=== PATIENT | female | born 1990 | race Caucasian/White ===

== ENCOUNTER → 2018-04-08 | Outpatient (CLI) | payer OTHER ==
[2016-04-10 05:53] VITALS: BP 111/40
[~2018-04-08] MED LIST: CIPR250T30 PO; GABA-585 PO; HALO2TAB PO; HYDR-971 PO; LORA-254 PO; NALT50TA PO; PARO40TA3 PO; PROM25TA10 PO
[2018-04-08 09:39] LABS: BASO % 1 % (0-3); EOS # 0.2 x10^3/uL (0.0-0.7); EOS % 3 % (0-3); HEMATOCRIT 38.6 % (36.0-47.0); HEMOGLOBIN 13.4 g/dL (12.0-15.5); LYMPH # 1.5 x10^3/uL (1.0-4.8); LYMPH % 22 % (24-48); MEAN CORPUSCULAR HEMOGLOBIN 33 pg (25-35); MEAN CORPUSCULAR HGB CONC 35 g/dL (31-37); MEAN CORPUSCULAR VOLUME 95 fL (79-100); MONO # 0.6 x10^3/uL (0.0-1.1); MONO % 9 % (0-9); NEUT # 4.6 x10^3uL (1.8-7.7); NEUT % 66 % (31-73); PLATELET COUNT 207 x10^3/uL (140-400); RED BLOOD COUNT 4.08 x10^6/uL (3.50-5.40); RED CELL DISTRIBUTION WIDTH 12.2 % (11.5-14.5)
[2018-04-08 09:45] LABS: ALBUMIN 3.4 g/dL (3.4-5.0); ALBUMIN/GLOBULIN RATIO 1.1 (1.0-1.7); ALK PHOS 46 U/L (46-116); ALT (SGPT) 17 U/L (14-59); ANION GAP 8 (6-14); AST (SGOT) 13 U/L (15-37); BLOOD UREA NITROGEN 10 mg/dL (7-20); BUN/CREATININE RATIO 11 (6-20); CALCIUM 9.4 mg/dL (8.5-10.1); CARBON DIOXIDE 28 mmol/L (21-32); CHLORIDE 105 mmol/L (98-107); CREATININE 0.9 mg/dL (0.6-1.0); GFR 75.1; GLUCOSE 88 mg/dL (70-99); POTASSIUM 3.9 mmol/L (3.5-5.1); SODIUM 141 mmol/L (136-145); TOTAL BILIRUBIN 0.2 mg/dL (0.2-1.0); TOTAL PROTEIN 6.6 g/dL (6.4-8.2)
[2018-04-08 09:46] LABS: VAL ACID 24 mcg/mL (50-100)
[2018-04-08 13:32] LABS: FREE T4 0.84 ng/dL (0.76-1.46); THYROID STIM HORMONE (TSH) 2.896 uIU/mL (0.358-3.740)
== END | disposition home or self-care (01) ==
LOC: LAB 08:31
PROVIDERS: ATTEND Physician Assistant
DX: Z51.81 Encounter for therapeutic drug level monitoring (principal); Z79.899 Other long term (current) drug therapy; Z88.0 Allergy status to penicillin; Z88.8 Allergy status to other drugs, medicaments and biological substances
CPT/HCPCS: 36415; 80053; 80061; 80164; 84439; 84443; 84480; 85025

== ENCOUNTER → 2018-10-16 | Outpatient (CLI) | payer MEDICARE, OTHER ==
[2016-04-10 05:53] VITALS: BP 111/40
[~2018-10-16] MED LIST changes: +HYDR-3165 PO; -HYDR-971 PO
[2018-10-16 10:29] LABS: VAL ACID 44 mcg/mL (50-100)
== END | disposition home or self-care (01) ==
LOC: LAB 09:00
PROVIDERS: ATTEND Physician Assistant
DX: Z79.899 Other long term (current) drug therapy (principal)
CPT/HCPCS: 36415; 80164

== ENCOUNTER 2019-03-17 18:42 | Emergency (ER) | payer MEDICARE, OTHER ==
[~2019-03-17] VITALS: Ht 170.2 cm; Wt 99.8 kg
[2019-03-17 18:53] VITALS: BP 141/87
[2019-03-17] MEDS ORDERED: CLINDAMYCIN HCL 150 MG CAPSULE PO ONE (19:15)
[2019-03-17] MEDS ORDERED: HYDR-3165 PO (19:18)
[2019-03-17] MEDS ORDERED: CLIN150C14 PO (19:18)
--- NOTE | 2019-03-17 19:18 | PHYS DOC ---
Past History Past Medical History: Anxiety, Depression, Other Past Surgical History: No Surgical History Smoking: Cigarettes Alcohol Use: None Drug Use: None Adult General Chief Complaint Chief Complaint: DENTAL PROBLEM HPI HPI Patient is a 28-year-old female presents with left lower back dental pain. This has been present for the past 4 days and getting worse over time. No improvement with acetaminophen. She is allergic to ibuprofen. No worsening with hot or cold, but increased pain with chewing/pressure. Pain is moderate to severe. No fever. No neck stiffness. No difficulty breathing or swallowing.[] Review of Systems Review of Systems Constitutional: Denies fever or chills [] Eyes: Denies change in visual acuity, redness, or eye pain [] HENT: Denies nasal congestion or sore throat, see history of present illness [] Respiratory: Denies cough or shortness of breath [] Cardiovascular: No chest pain or palpitations[] GI: Denies abdominal pain, nausea, vomiting, bloody stools or diarrhea [] : Denies dysuria or hematuria [] Musculoskeletal: Denies back pain or joint pain [] Integument: Denies rash or skin lesions [] Neurologic: Denies headache, focal weakness or sensory changes [] Endocrine: Denies polyuria or polydipsia [] All other systems were reviewed and found to be within normal limits, except as documented in this note. Allergies Allergies Allergies Coded Allergies Type Severity Reaction Last Updated Verified Penicillins Allergy Unknown hives 09/02/15 No zolpidem Allergy Unknown 04/09/16 Yes Physical Exam Physical Exam Constitutional: Well developed, well nourished, no acute distress, non-toxic appearance. [] HENT: Normocephalic, atraumatic, bilateral external ears normal, oropharynx moist, no oral exudates, nose normal. Tooth #18 has tenderness to percussion. No drainable abscess appreciated. No swelling of the floor the mouth.[] Eyes: PERRLA, EOMI, conjunctiva normal, no discharge. [] Neck: Normal range of motion, no tenderness, supple, no stridor. There is cervical lymphadenopathy on the left side, no nuchal rigidity.[] Cardiovascular:Heart rate regular rhythm, no murmur [] Lungs & Thorax: Bilateral breath sounds clear to auscultation [] Abdomen: Not examined. [] Skin: Warm, dry, no erythema, no rash. [] Back: No tenderness, no CVA tenderness. [] Extremities: No tenderness, no cyanosis, no clubbing, ROM intact, no edema. [] Neurologic: Alert and oriented X 3, normal motor function, normal sensory function, no focal deficits noted. [] Psychologic: Affect normal, judgement normal, mood normal. [] Current Patient Data Vital Signs Vital Signs Date Time Temp Pulse Resp B/P (MAP) Pulse Ox O2 Delivery O2 Flow Rate FiO2 03/17/19 18:53 98.2 89 18 99 Room Air EKG EKG [] Radiology/Procedures Radiology/Procedures [] Course & Med Decision Making Course & Med Decision Making Pertinent Labs and Imaging studies reviewed. (See chart for details) ED course and medical decision making: There is no evidence of Cipriano angina, no evidence of an abscess that is drainable. No evidence of meningitis or encephalitis. She was placed in a chair, given antibiotics, and discharged in improved condition with all questions answered.[] Dragon Disclaimer Dragon Disclaimer This electronic medical record was generated, in whole or in part, using a voice recognition dictation system. Departure Departure: Impression: Primary Impression: Dental infection Disposition: HOME, SELF-CARE Condition: IMPROVED Referrals: PCP,NO (PCP) Patient Instructions: Dental Abscess Additional Instructions: Follow-up with your regular doctor or dentist in 2 days. If you do not have a primary care team, list of local clinics will be provided for you. Return to the ER if worsening pain, difficulty swallowing or breathing, or any other concerns. Scripts Hydrocodone Bit/Acetaminophen (NORCO 5-325 TABLET) 1 Each Tablet 1 TAB PO Q4-6HRS for severe pain, #20 TAB Prov: PADMINI TORRES DO 03/17/19 Clindamycin Hcl (CLINDAMYCIN HCL) 150 Mg Capsule 2 CAP PO QID for dental infection, #90 CAP Prov: PADMINI TORRES DO 03/17/19 PADMINI TORRES DO Mar 17, 2019 19:18
== END 2019-03-17 19:23 | disposition home or self-care (01) ==
LOC: ER 18:42
DX: K04.7 Periapical abscess without sinus (principal); F17.210 Nicotine dependence, cigarettes, uncomplicated; Z88.0 Allergy status to penicillin; Z88.8 Allergy status to other drugs, medicaments and biological substances; Z88.6 Allergy status to analgesic agent
CPT/HCPCS: 99283

== ENCOUNTER → 2019-05-22 | Outpatient (CLI) | payer MEDICARE, OTHER ==
[~2019-05-22] MED LIST changes: +CLIN150C14 PO
[2019-05-22 09:48] LABS: ALBUMIN 3.4 g/dL (3.4-5.0); ALBUMIN/GLOBULIN RATIO 0.9 (1.0-1.7); ALK PHOS 42 U/L (46-116); ALT (SGPT) 14 U/L (14-59); ANION GAP 8 (6-14); AST (SGOT) 12 U/L (15-37); BLOOD UREA NITROGEN 8 mg/dL (7-20); BUN/CREATININE RATIO 9 (6-20); CARBON DIOXIDE 26 mmol/L (21-32); CHLORIDE 105 mmol/L (98-107); CREATININE 0.9 mg/dL (0.6-1.0); GFR 74.6; GLUCOSE 87 mg/dL (70-99); POTASSIUM 4.2 mmol/L (3.5-5.1); SODIUM 139 mmol/L (136-145); TOTAL BILIRUBIN 0.5 mg/dL (0.2-1.0)
[2019-05-22 09:49] LABS: VAL ACID 59 mcg/mL (50-100)
[2019-05-22 09:51] LABS: BASO % 1 % (0-3); EOS # 0.1 x10^3/uL (0.0-0.7); EOS % 2 % (0-3); HEMATOCRIT 40.5 % (36.0-47.0); LYMPH # 1.7 x10^3/uL (1.0-4.8); LYMPH % 38 % (24-48); MEAN CORPUSCULAR HEMOGLOBIN 34 pg (25-35); MEAN CORPUSCULAR HGB CONC 35 g/dL (31-37); MEAN CORPUSCULAR VOLUME 99 fL (79-100); MONO # 0.4 x10^3/uL (0.0-1.1); MONO % 9 % (0-9); NEUT # 2.3 x10^3uL (1.8-7.7); NEUT % 51 % (31-73); PLATELET COUNT 207 x10^3/uL (140-400); RED BLOOD COUNT 4.11 x10^6/uL (3.50-5.40); RED CELL DISTRIBUTION WIDTH 12.1 % (11.5-14.5); WHITE BLOOD COUNT 4.4 x10^3/uL (4.0-11.0)
[2019-05-22 14:37] LABS: FREE T4 0.83 ng/dL (0.76-1.46); THYROID STIM HORMONE (TSH) 2.722 uIU/mL (0.358-3.740)
[2019-05-23 06:07] LABS: HEMOGLOBIN A1C 4.8 % (4.8-5.6)
== END | disposition home or self-care (01) ==
LOC: LAB 08:44
PROVIDERS: ATTEND Physician Assistant
DX: Z51.81 Encounter for therapeutic drug level monitoring (principal); Z79.899 Other long term (current) drug therapy
CPT/HCPCS: 36415; 80053; 80061; 80164; 83036; 84439; 84443; 84480; 85025

== ENCOUNTER 2019-11-23 21:03 | Emergency (ER) | payer MEDICARE, OTHER ==
[~2019-11-23] VITALS: Ht 167.6 cm; Wt 97.7 kg
--- NOTE | 2019-11-23 21:18 | PHYS DOC ---
Past History Past Medical History: Anxiety, Depression, Other Past Surgical History: No Surgical History Smoking: Cigarettes Alcohol Use: None Drug Use: None General Adult EDM: Chief Complaint: BACK PAIN OR INJURY HPI: HPI: ".. I had gotten up on my daughter top bunk ....and I fell off hurting my back".. " That was yesterday.. I am still hurting..." Patient is a 29 year old female who presents with above hx of back pain after falling off top bunk yesterday. Patient has a contusion at upper part of lumbar area. Has findings of muscle spasm. Distal neurovascular intact. No problems with defecation or urination. Patient denies any history of cancer. Patient denies any history of immunosuppression. Patient denies any history of fever. No recent travel outside [facility]. No history of immunosuppression. Review of Systems: Review of Systems: Constitutional: Denies fever or chills Eyes: Denies change in visual acuity HENT: Denies nasal congestion or sore throat Respiratory: Denies cough or shortness of breath Cardiovascular: Denies chest pain or edema GI: Denies abdominal pain, nausea, vomiting, bloody stools or diarrhea : Denies dysuria Musculoskeletal: Complains of back pain Integument: Denies rash Neurologic: Denies headache, focal weakness or sensory changes Endocrine: Denies polyuria or polydipsia Lymphatic: Denies swollen glands Psychiatric: Denies depression or anxiety Heart Score: Risk Factors: Risk Factors: DM, Current or recent (<one month) smoker, HTN, HLP, family history of CAD, obesity. Risk Scores: Score 0 - 3: 2.5% MACE over next 6 weeks - Discharge Home Score 4 - 6: 20.3% MACE over next 6 weeks - Admit for Clinical Observation Score 7 - 10: 72.7% MACE over next 6 weeks - Early Invasive Strategies Family History: Family History: Noncontributory Current Medications: Current Meds: See nursing for home meds Allergies: Allergies: Allergies Coded Allergies Type Severity Reaction Last Updated Verified Penicillins Allergy Intermediate hives 03/17/19 No ibuprofen Allergy Intermediate Hives 03/17/19 Yes zolpidem Allergy Intermediate 03/17/19 Yes Physical Exam: PE: Constitutional: Moderate acute distress, non-toxic appearance. [] HENT: Normocephalic, atraumatic, bilateral external ears normal, oropharynx moist, no oral exudates, nose normal. [] Eyes: PERRLA, EOMI, conjunctiva normal, no discharge. [] Neck: Normal range of motion, no tenderness, supple, no stridor. [] Cardiovascular:Heart rate regular rhythm, no murmur [] Lungs & Thorax: Bilateral breath sounds equal at apex on auscultation [] Abdomen: Bowel sounds normal, soft, no tenderness, no masses, no pulsatile masses. [] Skin: Warm, dry, no erythema, no rash. [] Back: Upper lumbar tenderness, does have muscle spasms and findings of contusion, no CVA tenderness. [] Extremities: No tenderness, no cyanosis, no clubbing, ROM intact, no edema. [] Neurologic: Alert and oriented X 3, normal motor function, normal sensory function, no focal deficits noted. [] DTRs +2 patella. Patient is amatory without problems. Psychologic: Affect anxious l, judgement normal, mood normal. [] EKG: EKG: [] Radiology/Procedures: Radiology/Procedures: [][place] [id number] IMAGING REPORT Signed PATIENT: WILL VEGAS ACCOUNT: [id number] : 1990 LOCATION: ER AGE: 29 SEX: F EXAM STATUS: REG ER ORD. PHYSICIAN: NENA RESENDIZ MD REASON: Fell off bunk bed yesterday... still having pain PROCEDURE: CT LUMBAR SPINE WO CONTRAST EXAM: CT lumbar spine without contrast. HISTORY: Lumbar pain after a fall. TECHNIQUE: CT of the lumbar spine was performed without intravenous contrast. One or more of the following individualized dose reduction techniques were utilized for this examination: 1. Automated exposure control. 2. Adjustment of the mA and/or kV according to patient size. 3. Use of iterative reconstruction technique. COMPARISON: None. FINDINGS: At the L5 segment is sacralized bilaterally, with a rudimentary disc at L5-S1. A minimal lumbar levocurvature is within normal limits. Vertebral body heights are maintained, and no fractures are identified. Intervertebral disc heights are maintained. There are minimal posterior disc bulges from L2 through L5. There is no central canal stenosis or neural foraminal stenosis. IMPRESSION: 1. No fracture or malalignment. Electronically signed by: Alissa Chaudhari MD (11/23/2019 10:21 PM) [facility] DICTATED AND SIGNED BY: DIANA CHAUDHARI MD DATE: 11/23/192220 CC: NENA RESENDIZ MD; PCP,NO ~ Course & Med Decision Making: Course & Med Decision Making Pertinent Labs and Imaging studies reviewed. (See chart for details) Patient use ice packs as needed. Rest. Take Flexeril 10 up to 3 times a day for muscle spasms. May take Tylenol for pain for marked pain may take Percocet up to 4 times a day. Follow-up primary care. Return if any concerns. Impression : 1. Contusion 2. Back Sprain/ Strain [] Dragon Disclaimer: Dragon Disclaimer: This electronic medical record was generated, in whole or in part, using a voice recognition dictation system. Departure Departure: Disposition: 01 HOME/RESIDENCE PRIOR TO ADM Condition: STABLE Referrals: PCP,NO (PCP) Scripts Oxycodone HCl/Acetaminophen (Percocet 5-325 mg Tablet) 1 Each Tablet 1 TAB PO PRN QID PRN for PAIN MDD 4 Tablet(s) for 5 Days, #30 TAB 0 Refills Prov: NENA RESENDIZ MD 11/23/19 Cyclobenzaprine Hcl (CYCLOBENZAPRINE HCL) 10 Mg Tablet 10 MG PO TID PRN PRN for spasms, #30 TAB Prov: NENA RESENDIZ MD 11/23/19 Dragon Disclaimer This chart was dictated in whole or in part using Voice Recognition software in a busy, high-work load, and often noisy Emergency Department environment. It may contain unintended and wholly unrecognized errors or omissions. Dragon Disclaimer This chart was dictated in whole or in part using Voice Recognition software in a busy, high-work load, and often noisy Emergency Department environment. It may contain unintended and wholly unrecognized errors or omissions. NENA RESENDIZ MD November 23, 2019 21:18
[2019-11-23] MEDS ORDERED: oxyCODONE/APAP 5/325 1 TAB TABLET PO ONE (22:00)
--- NOTE | 2019-11-23 22:24 | RAD ---
EXAM: CT lumbar spine without contrast. HISTORY: Lumbar pain after a fall. TECHNIQUE: CT of the lumbar spine was performed without intravenous contrast. One or more of the following individualized dose reduction techniques were utilized for this examination: 1. Automated exposure control. 2. Adjustment of the mA and/or kV according to patient size. 3. Use of iterative reconstruction technique. COMPARISON: None. FINDINGS: At the L5 segment is sacralized bilaterally, with a rudimentary disc at L5-S1. A minimal lumbar levocurvature is within normal limits. Vertebral body heights are maintained, and no fractures are identified. Intervertebral disc heights are maintained. There are minimal posterior disc bulges from L2 through L5. There is no central canal stenosis or neural foraminal stenosis. IMPRESSION: 1. No fracture or malalignment. Electronically signed by: Alissa Chaudhari MD (11/23/2019 10:21 PM) [facility]
[2019-11-23] MEDS ORDERED: CYCL-331 PO (22:40)
[2019-11-23] MEDS ORDERED: OXYC-325 PO (22:40)
[2019-11-23 22:45] VITALS: BP 125/76
== END 2019-11-23 22:48 | disposition home or self-care (01) ==
LOC: ER 21:03
DX: S30.0XXA Contusion of lower back and pelvis, initial encounter (principal); S20.229A Contusion of unspecified back wall of thorax, initial encounter; F17.210 Nicotine dependence, cigarettes, uncomplicated; Z88.0 Allergy status to penicillin; Z88.6 Allergy status to analgesic agent; Z88.8 Allergy status to other drugs, medicaments and biological substances; W06.XXXA Fall from bed, initial encounter; Y93.89 Activity, other specified; Y92.89 Other specified places as the place of occurrence of the external cause; Y99.8 Other external cause status
CPT/HCPCS: 72131; 81025; 99284-25

== ENCOUNTER → 2019-12-17 | Outpatient (CLI) | payer MEDICARE, OTHER ==
[2019-11-23 22:45] VITALS: BP 125/76
[~2019-12-17] MED LIST changes: +CEPH-264 PO; +CYCL-331 PO; +OXYC-325 PO; +PROM25SU33 RC
[2019-12-17 09:19] LABS: BASO % 1 % (0-3); EOS # 0.2 x10^3/uL (0.0-0.7); EOS % 4 % (0-3); HEMATOCRIT 40.6 % (36.0-47.0); LYMPH # 1.7 x10^3/uL (1.0-4.8); LYMPH % 35 % (24-48); MEAN CORPUSCULAR HEMOGLOBIN 34 pg (25-35); MEAN CORPUSCULAR HGB CONC 34 g/dL (31-37); MEAN CORPUSCULAR VOLUME 99 fL (79-100); MONO # 0.4 x10^3/uL (0.0-1.1); MONO % 8 % (0-9); NEUT # 2.5 x10^3uL (1.8-7.7); NEUT % 52 % (31-73); PLATELET COUNT 202 x10^3/uL (140-400); RED BLOOD COUNT 4.11 x10^6/uL (3.50-5.40); RED CELL DISTRIBUTION WIDTH 12.6 % (11.5-14.5); WHITE BLOOD COUNT 4.9 x10^3/uL (4.0-11.0)
[2019-12-17 09:29] LABS: ALBUMIN 3.4 g/dL (3.4-5.0); ALK PHOS 46 U/L (46-116); ALT (SGPT) 19 U/L (14-59); ANION GAP 10 (6-14); AST (SGOT) 12 U/L (15-37); BLOOD UREA NITROGEN 10 mg/dL (7-20); BUN/CREATININE RATIO 11 (6-20); CALCIUM 8.9 mg/dL (8.5-10.1); CARBON DIOXIDE 24 mmol/L (21-32); CHLORIDE 104 mmol/L (98-107); CREATININE 0.9 mg/dL (0.6-1.0); GLUCOSE 106 mg/dL (70-99); SODIUM 138 mmol/L (136-145); TOTAL BILIRUBIN 0.4 mg/dL (0.2-1.0); TOTAL PROTEIN 6.9 g/dL (6.4-8.2)
[2019-12-17 09:30] LABS: VAL ACID 60 mcg/mL (50-100)
[2019-12-17 14:33] LABS: FREE T4 0.91 ng/dL (0.76-1.46); THYROID STIM HORMONE (TSH) 4.573 uIU/mL (0.358-3.740)
[2019-12-18 01:07] LABS: HEMOGLOBIN A1C 4.9 % (4.8-5.6)
== END | disposition home or self-care (01) ==
LOC: LAB 08:24
PROVIDERS: ATTEND Physician Assistant
DX: Z79.899 Other long term (current) drug therapy (principal); M54.5 Low back pain
CPT/HCPCS: 36415; 80053; 80061; 80164; 83036; 84439; 84443; 84480; 85025

== ENCOUNTER 2020-03-04 21:09 | Emergency (ER) | payer MEDICARE, OTHER ==
[~2020-03-04] VITALS: Ht 165.1 cm; Wt 95.7 kg
[~2020-03-04 21:09] MED LIST changes: -CEPH-264 PO; -PROM25SU33 RC
[2020-03-04 21:15] VITALS: BP 135/93
[2020-03-04] MEDS ORDERED: ACETAMINOPHEN 500 MG TABLET PO ONE (21:30)
[2020-03-04] MEDS ORDERED: IV NORMAL SALINE 1,000ML 1,000 ML IV ONE (21:30)
[2020-03-04 21:48] LABS: BASO # 0.1 x10^3/uL (0.0-0.2); BASO % 2 % (0-3); EOS # 0.1 x10^3/uL (0.0-0.7); EOS % 2 % (0-3); HEMATOCRIT 40.3 % (36.0-47.0); LYMPH % 31 % (24-48); MEAN CORPUSCULAR HEMOGLOBIN 35 pg (25-35); MEAN CORPUSCULAR HGB CONC 35 g/dL (31-37); MEAN CORPUSCULAR VOLUME 100 fL (79-100); MONO # 0.8 x10^3/uL (0.0-1.1); MONO % 13 % (0-9); NEUT # 3.4 x10^3uL (1.8-7.7); NEUT % 53 % (31-73); PLATELET COUNT 200 x10^3/uL (140-400); RED BLOOD COUNT 4.01 x10^6/uL (3.50-5.40); RED CELL DISTRIBUTION WIDTH 12.6 % (11.5-14.5); WHITE BLOOD COUNT 6.5 x10^3/uL (4.0-11.0)
[2020-03-04 21:56] LABS: CALCIUM 9.3 mg/dL (8.5-10.1); CREATININE 0.9 mg/dL (0.6-1.0); POTASSIUM 3.4 mmol/L (3.5-5.1)
[2020-03-04 22:02] LABS: ALBUMIN/GLOBULIN RATIO 1.2 (1.0-1.7); TOTAL BILIRUBIN 0.7 mg/dL (0.2-1.0); TOTAL PROTEIN 7.4 g/dL (6.4-8.2)
--- NOTE | 2020-03-04 23:34 | RAD ---
INDICATION: Reason: pelvic pain in . / Spl. Instructions: / History: COMPARISON: None. TECHNIQUE: Grayscale and color ultrasound images uterus and adnexa. Transabdominal and transvaginal images obtained. Transvaginal images were needed to better visualize structures that were limited on transabdominal imaging. FINDINGS: Uterus: 92 x 55 x 47 mm. Within the endometrial stripe there is a cystic structure identified measuring approximately 4 mm. Additional mixed echogenicity structure seen adjacent to the endometrial stripe measuring 5 mm. Nonspecific appearance with causes such as a complex cyst or small fibroid within the differential. Right Ovary: 32 x 23 x 21 mm. Left Ovary: 41 x 32 x 27 mm. Vascular flow identified to bilateral ovaries. 2 cm dominant follicle or small cyst left ovary. May have some internal complexity. IMPRESSION: * Cystic structure within the endometrial stripe. This could be secondary to an early gestational sac prior to development of a pole but would obtain follow-up to ensure that there is appropriate development of a pole to ensure that this is not secondary to a pseudogestational sac. Electronically signed by: Nilson Carson MD (03/04/2020 11:31 PM) [id number]
--- NOTE | 2020-03-04 23:39 | PHYS DOC ---
Past History Past Medical History: No Pertinent History Additional Past Medical Histor: PTSD, Borderline personality disorder Past Surgical History: No Surgical History Smoking: Cigarettes Alcohol Use: None Drug Use: None General Adult EDM: Chief Complaint: ABDOMINAL PAIN IN HPI: HPI: Patient is a [age] year old [sex] who presents with [] Review of Systems: Review of Systems: Constitutional: Denies fever or chills Eyes: Denies change in visual acuity HENT: Denies nasal congestion or sore throat Respiratory: Denies cough or shortness of breath Cardiovascular: Denies chest pain or edema GI: Denies abdominal pain, nausea, vomiting, bloody stools or diarrhea : Denies dysuria Musculoskeletal: Denies back pain or joint pain Integument: Denies rash Neurologic: Denies headache, focal weakness or sensory changes Endocrine: Denies polyuria or polydipsia Lymphatic: Denies swollen glands Psychiatric: Denies depression or anxiety Heart Score: Risk Factors: Risk Factors: DM, Current or recent (<one month) smoker, HTN, HLP, family history of CAD, obesity. Risk Scores: Score 0 - 3: 2.5% MACE over next 6 weeks - Discharge Home Score 4 - 6: 20.3% MACE over next 6 weeks - Admit for Clinical Observation Score 7 - 10: 72.7% MACE over next 6 weeks - Early Invasive Strategies Current Medications: Current Meds: Current Medications Medications (Trade) Dose Ordered Sig/Abiodun Start Time Stop Time Status Last Admin Dose Admin Acetaminophen (Tylenol) 500 mg 1X ONCE 03/04/20 21:30 03/04/20 21:49 DC 03/04/20 21:40 500 MG Sodium Chloride 1,000 ml @ 1,000 mls/hr 1X ONCE 03/04/20 21:30 03/04/20 22:30 DC 03/04/20 21:38 1,000 MLS/HR Allergies: Allergies: Allergies Coded Allergies Type Severity Reaction Last Updated Verified Penicillins Allergy Intermediate hives 03/17/19 No ibuprofen Allergy Intermediate Hives 03/17/19 Yes zolpidem Allergy Intermediate 03/17/19 Yes Physical Exam: PE: Constitutional: Well developed, well nourished, no acute distress, non-toxic appearance. [] HENT: Normocephalic, atraumatic, bilateral external ears normal, oropharynx moist, no oral exudates, nose normal. [] Eyes: PERRLA, EOMI, conjunctiva normal, no discharge. [] Neck: Normal range of motion, no tenderness, supple, no stridor. [] Cardiovascular:Heart rate regular rhythm, no murmur [] Lungs & Thorax: Bilateral breath sounds clear to auscultation [] Abdomen: Bowel sounds normal, soft, no tenderness, no masses, no pulsatile masses. [] Skin: Warm, dry, no erythema, no rash. [] Back: No tenderness, no CVA tenderness. [] Extremities: No tenderness, no cyanosis, no clubbing, ROM intact, no edema. [] Neurologic: Alert and oriented X 3, normal motor function, normal sensory function, no focal deficits noted. [] Psychologic: Affect normal, judgement normal, mood normal. [] Current Patient Data: Labs: Laboratory Tests Test 03/04/20 21:25 White Blood Count 6.5 x10^3/uL (4.0-11.0) Red Blood Count 4.01 x10^6/uL (3.50-5.40) Hemoglobin 14.0 g/dL (12.0-15.5) Hematocrit 40.3 % (36.0-47.0) Mean Corpuscular Volume 100 fL (79-100) Mean Corpuscular Hemoglobin 35 pg (25-35) Mean Corpuscular Hemoglobin Concent 35 g/dL (31-37) Red Cell Distribution Width 12.6 % (11.5-14.5) Platelet Count 200 x10^3/uL (140-400) Neutrophils (%) (Auto) 53 % (31-73) Lymphocytes (%) (Auto) 31 % (24-48) Monocytes (%) (Auto) 13 % (0-9) H Eosinophils (%) (Auto) 2 % (0-3) Basophils (%) (Auto) 2 % (0-3) Neutrophils # (Auto) 3.4 x10^3uL (1.8-7.7) Lymphocytes # (Auto) 2.0 x10^3/uL (1.0-4.8) Monocytes # (Auto) 0.8 x10^3/uL (0.0-1.1) Eosinophils # (Auto) 0.1 x10^3/uL (0.0-0.7) Basophils # (Auto) 0.1 x10^3/uL (0.0-0.2) Maternal Serum HCG Beta Subunit 3713 mIU/mL (0-6) H Sodium Level 138 mmol/L (136-145) Potassium Level 3.4 mmol/L (3.5-5.1) L Chloride Level 103 mmol/L (98-107) Carbon Dioxide Level 25 mmol/L (21-32) Anion Gap 10 (6-14) Blood Urea Nitrogen 10 mg/dL (7-20) Creatinine 0.9 mg/dL (0.6-1.0) Estimated GFR (Cockcroft-Gault) 74.0 BUN/Creatinine Ratio 11 (6-20) Glucose Level 90 mg/dL (70-99) Calcium Level 9.3 mg/dL (8.5-10.1) Magnesium Level 2.0 mg/dL (1.8-2.4) Total Bilirubin 0.7 mg/dL (0.2-1.0) Aspartate Amino Transferase (AST) 12 U/L (15-37) L Alanine Aminotransferase (ALT) 20 U/L (14-59) Alkaline Phosphatase 37 U/L (46-116) L Total Protein 7.4 g/dL (6.4-8.2) Albumin 4.0 g/dL (3.4-5.0) Albumin/Globulin Ratio 1.2 (1.0-1.7) Vital Signs: Vital Signs Date Time Temp Pulse Resp B/P (MAP) Pulse Ox O2 Delivery O2 Flow Rate FiO2 03/04/20 21:15 98.4 87 16 135/93 (107) 98 Room Air EKG: EKG: [] Radiology/Procedures: Radiology/Procedures: PROCEDURE: OB <14 WKS W/TV INDICATION: Reason: pelvic pain in . / Spl. Instructions: / History: COMPARISON: None. TECHNIQUE: Grayscale and color ultrasound images uterus and adnexa. Transabdominal and transvaginal images obtained. Transvaginal images were needed to better visualize structures that were limited on transabdominal imaging. FINDINGS: Uterus: 92 x 55 x 47 mm. Within the endometrial stripe there is a cystic structure identified measuring approximately 4 mm. Additional mixed echogenicity structure seen adjacent to the endometrial stripe measuring 5 mm. Nonspecific appearance with causes such as a complex cyst or small fibroid within the differential. Right Ovary: 32 x 23 x 21 mm. Left Ovary: 41 x 32 x 27 mm. Vascular flow identified to bilateral ovaries. 2 cm dominant follicle or small cyst left ovary. May have some internal complexity. IMPRESSION: * Cystic structure within the endometrial stripe. This could be secondary to an early gestational sac prior to development of a pole but would obtain follow-up to ensure that there is appropriate development of a pole to ensure that this is not secondary to a pseudogestational sac. Electronically signed by: Nilson Carson MD (03/04/2020 11:31 PM) [id number] Course & Med Decision Making: Course & Med Decision Making Pertinent Labs and Imaging studies reviewed. (See chart for details) [] Dragon Disclaimer: Dragon Disclaimer: This electronic medical record was generated, in whole or in part, using a voice recognition dictation system. Departure Departure: Impression: Primary Impression: Abdominal pain in Qualified Codes: O26.891 - Other specified related conditions, first trimester; R10.9 - Unspecified abdominal pain Disposition: 01 HOME/RESIDENCE PRIOR TO ADM Condition: STABLE Referrals: PCP,NO (PCP) Patient Instructions: ABCs of , Abdominal Pain During , [id number] Additional Instructions: Please follow closely with your FLOW MANAGER. You may continue use of over the counter Tylenol as needed. Continue use of vitamins. Justification of Admission: Justification of Admission: Justification of Admission Dx: N/A MILLIE SANDERS DO Mar 04, 2020 23:39
[2020-03-05] MEDS ORDERED: AZITHROMYCIN 250 MG TABLET. PO ONE (00:30)
[2020-03-05] MEDS ORDERED: cefTRIAXone IM 250 MG VIAL IM ONE (00:30)
[2020-03-09 21:09] LABS: CHLAMYDIA PROBE Negative (Negative)
== END 2020-03-05 00:55 | disposition home or self-care (01) ==
LOC: ER 21:09
DX: O26.891 Other specified pregnancy related conditions, first trimester (principal); R10.9 Unspecified abdominal pain; O99.331 Smoking (tobacco) complicating pregnancy, first trimester; Z3A.01 Less than 8 weeks gestation of pregnancy; Z88.0 Allergy status to penicillin; Z88.6 Allergy status to analgesic agent; Z88.8 Allergy status to other drugs, medicaments and biological substances
CPT/HCPCS: 76801; 76817; 80053; 83735; 84702; 85025; 86900; 86901; 87491; 87591; 96360; 96372; 99284; J0456; J0696; J7030; Q0111; 36415

== ENCOUNTER 2020-03-19 19:33 | Emergency (ER) | payer MEDICARE, OTHER ==
[~2020-03-19] VITALS: Ht 165.1 cm; Wt 98.0 kg
[2020-03-19] MEDS ORDERED: IV NORMAL SALINE 1,000ML 1,000 ML IV ONE (20:00)
--- NOTE | 2020-03-19 20:21 | RAD ---
STUDY: CT head without contrast INDICATION: Tremors. COMPARISON: None. TECHNIQUE: Axial CT imaging through the head without the use of intravenous contrast. Sagittal and coronal reformats were obtained. One or more of the following individualized dose reduction techniques were utilized for this examination: 1. Automated exposure control 2. Adjustment of the mA and/or kV according to patient size 3. Use of iterative reconstruction technique. FINDINGS: No acute intracranial hemorrhage. Katz-white matter differentiation is maintained. No mass effect, midline shift or hydrocephalus. Unremarkable calvarium and scalp. Underpneumatized right more so than left mastoid air cells. Normally aerated middle ears. Underpneumatized frontal sinus. The visualized ethmoidal air cells and sphenoid sinus are unremarkable. IMPRESSION: No acute intracranial abnormality by CT. Electronically signed by: HUDSON RAMOS MD (03/19/2020 8:18 PM) [id number]
--- NOTE | 2020-03-19 20:31 | PHYS DOC ---
Past History Past Medical History: Anxiety, Other Additional Past Medical Histor: PTSD, Borderline personality disorder Past Surgical History: No Surgical History Smoking: Cigarettes Alcohol Use: None Drug Use: None General Adult EDM: Chief Complaint: NEURO SYMPTOMS/DEFICITS HPI: HPI: 29-year-old female who is about 8 weeks presents with tremors. Patient states that she started to have a tremor in her right arm and occasionally in the left. This started spontaneously about a week ago. She thought it would go away but it has not. Nothing seems to make it better or worse. She did have a tremor like this in the past when she was on haloperidol. She has been off haloperidol for several years and has had no tremor. The only recent change was the patient was taken off of Depakote because of her . She does vape, but only uses store-bought nicotine-based product. She denies drug or alcohol use. She has been eating and drinking normally. Denies fever or chills. Review of Systems: Review of Systems: Constitutional: Denies fever or chills Eyes: Denies change in visual acuity HENT: Denies nasal congestion or sore throat Respiratory: Denies cough or shortness of breath Cardiovascular: Denies chest pain or edema GI: Denies abdominal pain, nausea, vomiting, bloody stools or diarrhea : Denies dysuria Musculoskeletal: Denies back pain or joint pain Integument: Denies rash Neurologic: Bilateral upper extremity tremor. Denies headache, focal weakness or sensory changes Endocrine: Denies polyuria or polydipsia Lymphatic: Denies swollen glands Psychiatric: Denies depression or anxiety Heart Score: Risk Factors: Risk Factors: DM, Current or recent (<one month) smoker, HTN, HLP, family history of CAD, obesity. Risk Scores: Score 0 - 3: 2.5% MACE over next 6 weeks - Discharge Home Score 4 - 6: 20.3% MACE over next 6 weeks - Admit for Clinical Observation Score 7 - 10: 72.7% MACE over next 6 weeks - Early Invasive Strategies Current Medications: Current Meds: Current Medications Medications (Trade) Dose Ordered Sig/Abiodun Start Time Stop Time Status Last Admin Dose Admin Sodium Chloride 1,000 ml @ 1,000 mls/hr 1X ONCE 03/19/20 20:00 03/19/20 20:59 03/19/20 20:16 1,000 MLS/HR Allergies: Allergies: Allergies Coded Allergies Type Severity Reaction Last Updated Verified Penicillins Allergy Intermediate hives 03/17/19 No ibuprofen Allergy Intermediate Hives 03/17/19 Yes zolpidem Allergy Intermediate 03/17/19 Yes Physical Exam: PE: Constitutional: Well developed, well nourished, no acute distress, non-toxic appearance. [] HENT: Normocephalic, atraumatic, bilateral external ears normal, oropharynx moist, no oral exudates, nose normal. [] Eyes: PERRLA, EOMI, conjunctiva normal, no discharge. [] Neck: Normal range of motion, no tenderness, supple, no stridor. [] Cardiovascular:Heart rate regular rhythm, no murmur [] Lungs & Thorax: Bilateral breath sounds clear to auscultation [] Abdomen: Bowel sounds normal, soft, no tenderness, no masses, no pulsatile masses. [] Skin: Warm, dry, no erythema, no rash. [] Back: No tenderness, no CVA tenderness. [] Extremities: No tenderness, no cyanosis, no clubbing, ROM intact, no edema. [] Neurologic: Alert and oriented X 3, normal sensory function, no focal deficits noted. Bilateral upper extremity course tremor. Consistent tremor with and without intention. [] Psychologic: Affect normal, judgement normal, mood normal. [] Current Patient Data: Vital Signs: Vital Signs Date Time Temp Pulse Resp B/P (MAP) Pulse Ox O2 Delivery O2 Flow Rate FiO2 03/19/20 19:47 98.2 89 16 123/79 (94) 98 Room Air EKG: EKG: [] Radiology/Procedures: Radiology/Procedures: [] Impressions: STUDY: CT head without contrast INDICATION: Tremors. COMPARISON: None. TECHNIQUE: Axial CT imaging through the head without the use of intravenous contrast. Sagittal and coronal reformats were obtained. One or more of the following individualized dose reduction techniques were utilized for this examination: 1. Automated exposure control 2. Adjustment of the mA and/or kV according to patient size 3. Use of iterative reconstruction technique. FINDINGS: No acute intracranial hemorrhage. Katz-white matter differentiation is maintained. No mass effect, midline shift or hydrocephalus. Unremarkable calvarium and scalp. Underpneumatized right more so than left mastoid air cells. Normally aerated middle ears. Underpneumatized frontal sinus. The visualized ethmoidal air cells and sphenoid sinus are unremarkable. IMPRESSION: No acute intracranial abnormality by CT. Electronically signed by: HUDSON RAMOS MD (03/19/2020 8:18 PM) [id number] DICTATED AND SIGNED BY: HUDSON RAMOS MD DATE: 03/19/202017 CC: FRED MARCH DO; PCPQUYEN ~ Course & Med Decision Making: Course & Med Decision Making Pertinent Labs and Imaging studies reviewed. (See chart for details) The patient's head CT is negative for acute findings. Her labs are unremarkable. Her urinalysis shows significant urinary tract infection. She is also . I will treat her with Keflex for 5 days. We will give the first dose in the emergency room. Her penicillin allergy is just hives. She is stable for discharge at this time. [] Dragon Disclaimer: Dragon Disclaimer: This electronic medical record was generated, in whole or in part, using a voice recognition dictation system. Departure Departure: Impression: Primary Impression: UTI (urinary tract infection) Qualified Codes: N30.01 - Acute cystitis with hematuria Additional Impressions: Tremor Disposition: HOME/RESIDENCE PRIOR TO ADM Condition: STABLE Referrals: PCPQUYEN (PCP) Scripts Cephalexin (KEFLEX) 500 Mg Capsule 1 CAP PO TID for UTI for 5 Days, #15 CAP 0 Refills Prov: FRED MARCH DO 03/19/20 Justification of Admission: Justification of Admission: Justification of Admission Dx: N/A FRED MARCH DO Mar 19, 2020 20:31
[2020-03-19 20:36] LABS: BASO # 0.1 x10^3/uL (0.0-0.2); BASO % 1 % (0-3); EOS # 0.1 x10^3/uL (0.0-0.7); EOS % 2 % (0-3); HEMATOCRIT 39.5 % (36.0-47.0); HEMOGLOBIN 13.8 g/dL (12.0-15.5); LYMPH # 2.4 x10^3/uL (1.0-4.8); LYMPH % 32 % (24-48); MEAN CORPUSCULAR HEMOGLOBIN 35 pg (25-35); MEAN CORPUSCULAR HGB CONC 35 g/dL (31-37); MEAN CORPUSCULAR VOLUME 102 fL (79-100); MONO # 0.8 x10^3/uL (0.0-1.1); MONO % 11 % (0-9); NEUT % 54 % (31-73); PLATELET COUNT 190 x10^3/uL (140-400); RED CELL DISTRIBUTION WIDTH 12.7 % (11.5-14.5); WHITE BLOOD COUNT 7.4 x10^3/uL (4.0-11.0)
[2020-03-19 20:49] LABS: BARBITURATES NEG (NEG); BENZODIAZEPINES NEG (NEG); CANNABINOIDS NEG (NEG); COCAINE NEG (NEG); METHADONE NEG (NEG); OPIATES NEG (NEG); PHENCYCLIDINE NEG (NEG)
[2020-03-19 20:50] LABS: CALCIUM 9.3 mg/dL (8.5-10.1); CREATININE 0.8 mg/dL (0.6-1.0); GFR 84.8; POTASSIUM 3.3 mmol/L (3.5-5.1)
[2020-03-19 20:53] LABS: AMPHETAMINE/METHAMPHETAMINE NEG (NEG)
[2020-03-19 20:57] LABS: ALBUMIN 3.6 g/dL (3.4-5.0); ALBUMIN/GLOBULIN RATIO 1.2 (1.0-1.7); TOTAL BILIRUBIN 0.9 mg/dL (0.2-1.0); TOTAL PROTEIN 6.7 g/dL (6.4-8.2)
[2020-03-19 21:14] LABS: BILIRUBIN,URINE NEG (NEG); CLARITY,URINE HAZY; COLOR,URINE YELLOW; GLUCOSE,URINE NEG (NEG)
[2020-03-19 21:15] LABS: BACTERIA,URINE MOD /HPF (0-FEW); NITRITE,URINE POS (NEG); SQUAMOUS EPITHELIAL CELL,UR FEW /LPF; UROBILINOGEN,URINE 0.2 mg/dL (0.2 mg/dL); WBC,URINE 20-40 /HPF (0-4)
[2020-03-19] MEDS ORDERED: CEPHALEXIN 250 MG CAPSULE PO ONE (22:15)
[2020-03-19] MEDS ORDERED: CEPH-264 PO (22:16)
[2020-03-19 22:25] VITALS: BP 121/74
== END 2020-03-19 22:30 | disposition home or self-care (01) ==
LOC: ER 19:33
DX: O23.41 Unspecified infection of urinary tract in pregnancy, first trimester (principal); R25.1 Tremor, unspecified; O99.331 Smoking (tobacco) complicating pregnancy, first trimester; Z3A.08 8 weeks gestation of pregnancy; Z88.0 Allergy status to penicillin; Z88.6 Allergy status to analgesic agent; Z88.8 Allergy status to other drugs, medicaments and biological substances
CPT/HCPCS: 36415; 70450; 80053; 80307; 81001; 81025; 83735; 84702; 85025; 87086; 96360; 96361; 99284; J7030; 87077; 87186

== ENCOUNTER 2020-04-21 21:07 | Emergency (ER) | payer MEDICARE, OTHER ==
[~2020-04-21] VITALS: Ht 165.1 cm; Wt 98.0 kg
[~2020-04-21 21:07] MED LIST changes: +CEPH-264 PO
[2020-04-21 21:22] VITALS: BP 117/75
--- NOTE | 2020-04-21 22:41 | PHYS DOC ---
Past History Past Medical History: Anxiety, Other Additional Past Medical Histor: PTSD, Borderline personality disorder Past Surgical History: No Surgical History Smoking: Cigarettes Alcohol Use: None Drug Use: None General Adult EDM: Chief Complaint: VOMITING IN HPI: HPI: Patient is a 29-year-old female who is at 12 weeks who presents to the emergency room for nausea and vomiting which started a week ago. She decided to come into the emergency room because she noticed some blood streaks in her vomit prior to arrival. She states that she had hyperemesis gravidarum in her previous 2 pregnancies and had to be given Phenergan for her nausea. She currently is taking Zofran at home as needed but she states that she has not noticed any improvement to her symptoms. She denies any fevers, chills, or vaginal bleeding/discharge. 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 Valentino. Review of Systems: Review of Systems: Constitutional: Denies fever or chills Eyes: Denies redness or eye pain HENT: Denies nasal congestion or sore throat Respiratory: Denies cough or shortness of breath Cardiovascular: Denies chest pain or palpitations GI: Denies abdominal pain, reports nausea and vomiting with mild blood streaks : Denies dysuria, hematuria, or abnormal vaginal discharge and bleeding Musculoskeletal: Denies back pain or joint pain Integument: Denies rash or skin lesions Neurologic: Denies headache, focal weakness or sensory changes Complete systems were reviewed and found to be within normal limits, except as documented in this note. Allergies: Allergies: Allergies Coded Allergies Type Severity Reaction Last Updated Verified Penicillins Allergy Intermediate hives 03/17/19 No ibuprofen Allergy Intermediate Hives 03/17/19 Yes zolpidem Allergy Intermediate 03/17/19 Yes Physical Exam: PE: Constitutional: Well developed, well nourished, no acute distress, non-toxic appearance, appears tired HENT: Normocephalic, atraumatic, mild erythema to posterior oropharynx Eyes: Conjunctiva normal, no discharge Neck: Normal range of motion, no tenderness, supple Lungs & Thorax: No respiratory distress, equal chest rise and fall Abdomen: Soft, no tenderness, no guarding/rebound tenderness/distention Skin: Warm, dry, no erythema, no rash Back: No tenderness, no CVA tenderness Extremities: No tenderness, ROM intact, no edema Neurologic: Alert and oriented X 3, normal motor function, normal sensory function, no focal deficits noted Psychologic: Affect normal, judgment normal Current Patient Data: Vital Signs: Vital Signs Date Time Temp Pulse Resp B/P (MAP) Pulse Ox O2 Delivery O2 Flow Rate FiO2 04/21/20 21:22 98.5 100 16 117/75 (89) 98 Room Air Course & Med Decision Making: Course & Med Decision Making Pertinent Lab studies reviewed. (See chart for details) patient presents with report of nausea and vomiting. Denies vaginal bleeding or pelvic pain. Symptomatic treatment provided. Labs obtained and posted to chart. IVF hydration given. Patient stable for discharge with outpatient follow-up with PCP/OB. Discussed findings and plan with patient, who acknowledges understanding and agreement. Brandon Disclaimer: Brandon Disclaimer: This electronic medical record was generated, in whole or in part, using a voice recognition dictation system. Departure Departure: Impression: Primary Impression: Nausea and vomiting in Disposition: 01 HOME/RESIDENCE PRIOR TO ADM Condition: STABLE Referrals: PCP,QUYEN (PCP) Patient Instructions: ABCs of , Nausea and Vomiting, [id number] Scripts Promethazine Hcl (PROMETHAZINE HCL) 25 Mg Supp.rect 25 MG RC Q6HRS PRN for NAUSEA, #10 SUPP.RECT Prov: MILLIE SANDERS DO 04/22/20 MILLIE SANDERS DO Apr 21, 2020 22:41
[2020-04-21] MEDS: FAMOTIDINE 20 MG/2 ML VIAL IVP ONE (22:59)
[2020-04-21] MEDS: PROMETHAZINE 25 MG SUPP.RECT. PR ONE (22:59)
[2020-04-21] MEDS: IV NORMAL SALINE 1,000ML 1,000 ML IV ONE (22:59)
[2020-04-22] MEDS ORDERED: PROM25SU33 RC (00:29)
[2020-04-22 01:21] LABS: BASO % 1 % (0-3); CALCIUM 9.6 mg/dL (8.5-10.1); CREATININE 0.7 mg/dL (0.6-1.0); EOS # 0.1 x10^3/uL (0.0-0.7); EOS % 2 % (0-3); GFR 98.9; HEMATOCRIT 37.9 % (36.0-47.0); LYMPH # 1.9 x10^3/uL (1.0-4.8); LYMPH % 27 % (24-48); MEAN CORPUSCULAR HEMOGLOBIN 35 pg (25-35); MEAN CORPUSCULAR HGB CONC 34 g/dL (31-37); MEAN CORPUSCULAR VOLUME 103 fL (79-100); MONO # 0.6 x10^3/uL (0.0-1.1); MONO % 8 % (0-9); NEUT # 4.4 x10^3uL (1.8-7.7); NEUT % 63 % (31-73); PLATELET COUNT 199 x10^3/uL (140-400); POTASSIUM 3.6 mmol/L (3.5-5.1); RED BLOOD COUNT 3.67 x10^6/uL (3.50-5.40); WHITE BLOOD COUNT 6.9 x10^3/uL (4.0-11.0)
[2020-04-22 01:27] LABS: ALBUMIN 3.6 g/dL (3.4-5.0); ALBUMIN/GLOBULIN RATIO 1.1 (1.0-1.7); TOTAL BILIRUBIN 0.5 mg/dL (0.2-1.0); TOTAL PROTEIN 6.9 g/dL (6.4-8.2)
[2020-04-22 01:44] LABS: BACTERIA,URINE 0 /HPF (0-FEW); BILIRUBIN,URINE NEG (NEG); CLARITY,URINE CLOUDY; COLOR,URINE AMBER; GLUCOSE,URINE NEG (NEG); NITRITE,URINE POS (NEG); RBC,URINE RARE /HPF (0-2); SQUAMOUS EPITHELIAL CELL,UR FEW /LPF; UROBILINOGEN,URINE 0.2 mg/dL (0.2 mg/dL)
== END 2020-04-22 01:02 | disposition home or self-care (01) ==
LOC: ER 21:07
DX: O21.9 Vomiting of pregnancy, unspecified (principal); O99.332 Smoking (tobacco) complicating pregnancy, second trimester; Z3A.12 12 weeks gestation of pregnancy; Z88.0 Allergy status to penicillin; Z88.8 Allergy status to other drugs, medicaments and biological substances
CPT/HCPCS: 36415; 80053; 81001; 83735; 85025; 87077; 87086; 87186; 96361; 96374; 99283; J3490; J7030

== ENCOUNTER 2020-08-11 23:21 | Emergency (ER) | payer MEDICARE, OTHER ==
[~2020-08-11] VITALS: Ht 165.1 cm; Wt 98.0 kg
[~2020-08-11 23:21] MED LIST changes: -CLIN150C14 PO; +CLIN150C15 PO; +PROM25SU33 RC
--- NOTE | 2020-08-11 23:56 | PHYS DOC ---
Past History Past Medical History: Anxiety, Other Additional Past Medical Histor: PTSD, Borderline personality disorder Past Surgical History: No Surgical History Smoking: Cigarettes Alcohol Use: None Drug Use: None Adult General Chief Complaint Chief Complaint: ABDOMINAL PAIN IN HPI HPI Patient is a 30-year-old G3, P1, with a history of miscarriage and last child 8 weeks early who presents with a chief complaint of contractions. States that about an hour before coming to the emergency department she began to have contractions, 2 to 3 minutes apart. Denies any vaginal bleeding, gushes of fluid, vaginal pain or traumas. Denies any recent travel, illnesses, Covid/flu symptoms. States she was doing well up until about an hour ago and saw her [employer] 2 days ago. States at that appointment all was well. Denies any dysuria, hematuria. Denies any alcohol or drug use. States she called her [facility] at [place] just before coming and was directed to the ED and told if she needed to come in to be transferred there. Review of Systems Review of Systems Review of systems otherwise unremarkable except noted in HPI. Allergies Allergies Allergies Coded Allergies Type Severity Reaction Last Updated Verified Penicillins Allergy Intermediate hives 03/17/19 No ibuprofen Allergy Intermediate Hives 03/17/19 Yes zolpidem Allergy Intermediate 03/17/19 Yes Physical Exam Physical Exam Constitutional: Well developed, well nourished, no acute distress, non-toxic appearance. [] HENT: Normocephalic, atraumatic, Eyes: conjunctiva normal, no discharge. [] Neck: Normal range of motion, Cardiovascular:Heart rate regular rhythm, Lungs & Thorax: Bilateral breath sounds clear to auscultation [] Abdomen: Gravid with uterine fundus felt approximately 10 cm above the umb ilicus. movement noted. heart rate noted between 190 and 205. Skin: Warm, dry, no erythema, no rash. [] Back: No tenderness, : Cervical os closed with no tenderness. No vaginal bleeding noted. No significant discharge, only scant white discharge. Nitrazine test negative. Extremities: No tenderness, no cyanosis, no clubbing, ROM intact, no edema. [] Neurologic: Alert and oriented X 3, normal motor function, normal sensory function, no focal deficits noted. [] Psychologic: Affect normal, judgement normal, mood normal. [] Current Patient Data Vital Signs Vital Signs Date Time Temp Pulse Resp B/P (MAP) Pulse Ox O2 Delivery O2 Flow Rate FiO2 08/11/20 23:31 98.5 130 20 103/52 (69) 98 Room Air EKG EKG [] Radiology/Procedures Radiology/Procedures [] Heart Score Risk Factors: Risk Factors: DM, Current or recent (<one month) smoker, HTN, HLP, family history of CAD, obesity. Risk Scores: Risk Factors: DM, Current or recent (<one month) smoker, HTN, HLP, family history of CAD, obesity. Course & Med Decision Making Course & Med Decision Making Patient is a 30-year-old G3, P1 who presents with contractions for approximately 1 hour lasting 2 to 3 minutes Vital signs not concerning. Physical exam noted above. Patient with a closed cervical os, negative nitrazine test. However heart rate running between 190 and 205. Basic labs obtained. Called [place] [facility] who instructed us to have her come by ambulance as soon as possible, with no need to wait for labs to result. Discussed findings with patient and recommended transfer to [place] for continued observation, evaluation. Family grateful, verbalized understanding and agreed with plan of discharge/transfer. [] Dragon Disclaimer Dragon Disclaimer This electronic medical record was generated, in whole or in part, using a voice recognition dictation system. Departure Departure: Impression: Primary Impression: Uterine contractions at greater than 20 weeks of gestation Disposition: 05 DC/TRF OTHER TYPE INSTITUTI Condition: STABLE Referrals: PCP,NO (PCP) SANDY WHITE MD Aug 11, 2020 23:56
[2020-08-12 00:07] LABS: BASO % 0 % (0-3); EOS % 1 % (0-3); HEMATOCRIT 32.1 % (36.0-47.0); HEMOGLOBIN 11.3 g/dL (12.0-15.5); LYMPH # 0.8 x10^3/uL (1.0-4.8); LYMPH % 11 % (24-48); MEAN CORPUSCULAR HEMOGLOBIN 36 pg (25-35); MEAN CORPUSCULAR HGB CONC 35 g/dL (31-37); MEAN CORPUSCULAR VOLUME 102 fL (79-100); MONO # 0.7 x10^3/uL (0.0-1.1); MONO % 9 % (0-9); NEUT # 5.6 x10^3uL (1.8-7.7); NEUT % 79 % (31-73); PLATELET COUNT 122 x10^3/uL (140-400); RED BLOOD COUNT 3.14 x10^6/uL (3.50-5.40); RED CELL DISTRIBUTION WIDTH 12.1 % (11.5-14.5); WHITE BLOOD COUNT 7.1 x10^3/uL (4.0-11.0)
[2020-08-12 00:09] LABS: CALCIUM 8.6 mg/dL (8.5-10.1); CREATININE 0.7 mg/dL (0.6-1.0); GFR 98.3; POTASSIUM 3.4 mmol/L (3.5-5.1)
[2020-08-12] MEDS ORDERED: IV RINGERS SOLUTION,LACTATED 1,000 ML IV ONE (00:15)
[2020-08-12 00:22] VITALS: BP 99/53
== END 2020-08-12 00:26 | disposition short-term general hospital (02) ==
LOC: ER 23:21
DX: O62.8 Other abnormalities of forces of labor (principal); Z3A.00 Weeks of gestation of pregnancy not specified; O99.332 Smoking (tobacco) complicating pregnancy, second trimester; Z88.0 Allergy status to penicillin; Z88.6 Allergy status to analgesic agent; Z88.8 Allergy status to other drugs, medicaments and biological substances
CPT/HCPCS: 36415; 80048; 85025; 99285; J7120

== ENCOUNTER 2021-04-17 20:29 | Emergency (ER) | payer MEDICARE, OTHER ==
[~2021-04-17] VITALS: Ht 165.1 cm; Wt 72.1 kg
[~2021-04-17 20:29] MED LIST changes: -CLIN150C15 PO; +CLIN150C16 PO
--- NOTE | 2021-04-17 20:55 | PHYS DOC ---
Past History Past Medical History: Anxiety, Other Additional Past Medical Histor: PTSD, Borderline personality disorder Past Surgical History: Other Smoking: Cigarettes Alcohol Use: None Drug Use: None Adult General Chief Complaint Chief Complaint: HEADACHE HPI HPI Patient is a 30-year-old female presenting for migraine headache. This is an acute on chronic issue for her. She has longstanding history of migraine type headaches that typically resolve with [id number] medications. [place] the zoo [place] and thinks that being outside for longer times than usual with decreased p.o. fluid intake likely precipitated her migraine today. She reports she has had prodromal aura with light sensitivity that prompted a bilateral frontal stabbing-like headache. No thunderclap phenomenal. No issues with neck or other concerning signs for nuchal rigidity, no trauma, concerning ingestion or obvious mechanism of injury. Admits history of mental health disease for which she is on medication for, denies SI and HI, has been at baseline health with no significant changes in medication recently. Review of Systems Review of Systems Fourteen body systems of review of systems have been reviewed. See HPI for pertinent positives and negative responses, other clemente all other systems are negative, non-pertinent or non-contributory Allergies Allergies Allergies Coded Allergies Type Severity Reaction Last Updated Verified Penicillins Allergy Intermediate hives 03/17/19 No ibuprofen Allergy Intermediate Hives 03/17/19 Yes zolpidem Allergy Intermediate 03/17/19 Yes Physical Exam Physical Exam Constitutional: Well developed, well nourished, no acute distress, non-toxic appearance. Ambulatory to ER room HENT: Normocephalic, atraumatic, bilateral external ears normal, oropharynx moist, no oral exudates, nose normal. Eyes: PERRLA, EOMI, conjunctiva normal, no discharge. Patient reports photosensitivity with bright light during examination Neck: Normal range of motion, no tenderness, supple, no stridor. No nuchal rigidity or meningeal signs, negative Kernig and Brudzinski tests Cardiovascular: Heart rate regular, sinus rhythm, no murmurs rubs or gallops Lungs & Thorax: Bilateral breath sounds clear to auscultation Abdomen: Bowel sounds normal, soft, no tenderness, no masses, no pulsatile masses. Nonsurgical abdomen, no peritoneal signs Skin: Warm, dry, no erythema, no rash. Back: No tenderness, no CVA tenderness. Extremities: No tenderness, no cyanosis, no clubbing, ROM intact, no edema. Neurologic: Alert and oriented X 3, cranial nerves II through XII intact, normal motor & sensory function, no focal deficits noted. Psychologic: Odd affect, judgement normal, mood normal. Current Patient Data Vital Signs Vital Signs Date Time Temp Pulse Resp B/P (MAP) Pulse Ox O2 Delivery O2 Flow Rate FiO2 04/17/21 20:35 98.2 85 20 129/84 (99) Room Air EKG EKG [] Radiology/Procedures Radiology/Procedures [] Heart Score C/O Chest Pain: No Risk Factors: Risk Factors: DM, Current or recent (<one month) smoker, HTN, HLP, family history of CAD, obesity. Risk Scores: Risk Factors: DM, Current or recent (<one month) smoker, HTN, HLP, family history of CAD, obesity. Course & Med Decision Making Course & Med Decision Making ABCs unremarkable HPI and physical exam nonconcerning for any emergent or surgical issues, symptoms today consistent with prior migraine without any red flag signs or symptoms such as neck stiffness, history of being unvaccinated, IV drug use etc. Patient's condition improved with ER intervention that included IV fluids, Compazine and Benadryl and Tylenol. Continued supportive care and outpatient PCP follow-up advised with recommendations for consideration for neurologist referral Strict return precautions discussed and understood with good verbalized understanding by patient, all questions and concerns addressed prior to departur maryjane Taylor Disclaimer Brandon Disclaimer This electronic medical record was generated, in whole or in part, using a voice recognition dictation system. Departure Departure: Impression: Primary Impression: Migraine headache Disposition: HOME / SELF CARE / HOMELESS Condition: IMPROVED Referrals: PCPQUYEN (PCP) Additional Instructions: You were seen for a headache, likely migraine in etiology. Your symptoms improved with in anti-nausea medication, typical headache medication, and gentle fluid hydration. You should return to the ED if you develop worsening pain, vision change, numbness, tingling, weakness, vomiting, fever, neck pain, or any other new or concerning symptoms. You need to follow up with your primary care physician for further evaluation and treatment with consideration for outpatient neurology referral. FIDELIA FISH DO Apr 17, 2021 20:55
[2021-04-17] MEDS ORDERED: PROCHLORPERAZINE 10 MG/2 ML VIAL. IV ONE (21:00)
[2021-04-17] MEDS ORDERED: IV NORMAL SALINE 1,000ML 1,000 ML IV ONE (21:00)
[2021-04-17] MEDS ORDERED: diphenhydrAMINE 50 MG/ML VIAL IVP ONE (21:00)
[2021-04-17] MEDS ORDERED: ACETAMINOPHEN 500 MG TABLET PO ONE (21:15)
[2021-04-17 22:31] VITALS: BP 111/73
== END 2021-04-17 22:50 | disposition home or self-care (01) ==
LOC: ER 20:29
DX: G43.909 Migraine, unspecified, not intractable, without status migrainosus (principal); F41.9 Anxiety disorder, unspecified; F43.10 Post-traumatic stress disorder, unspecified; F17.210 Nicotine dependence, cigarettes, uncomplicated; Z88.0 Allergy status to penicillin; Z88.8 Allergy status to other drugs, medicaments and biological substances
CPT/HCPCS: 96361; 96374; 96375; 99284; J0780; J1200; J7030

== ENCOUNTER 2021-05-24 09:30 | Emergency (ER) | payer MEDICARE, OTHER ==
[~2021-05-24] VITALS: Ht 165.1 cm; Wt 72.1 kg
[2021-05-24 09:30] VITALS: BP 123/85
[~2021-05-24 09:30] MED LIST changes: -CYCL-331 PO; +CYCL10TA19 PO
--- NOTE | 2021-05-24 10:25 | PHYS DOC ---
Past History Past Medical History: Anxiety, Other Additional Past Medical Histor: PTSD, Borderline personality disorder Past Surgical History: Other Smoking: Cigarettes Alcohol Use: Rarely Drug Use: None General Adult EDM: Chief Complaint: SORE THROAT HPI: HPI: 30-year-old female presents with sore throat. She has had a sore throat for the last 3 days. She is also had some cervical lymph node swelling. She has a baby at home and wants to make sure it's not strep. Denies fever or chills. Review of Systems: Review of Systems: Constitutional: Denies fever or chills Eyes: Denies change in visual acuity HENT: sore throat Respiratory: Denies cough or shortness of breath Cardiovascular: Denies chest pain or edema GI: Denies abdominal pain, nausea, vomiting, bloody stools or diarrhea : Denies dysuria Musculoskeletal: Denies back pain or joint pain Integument: Denies rash Neurologic: Denies headache, focal weakness or sensory changes Endocrine: Denies polyuria or polydipsia Lymphatic: Denies swollen glands Psychiatric: Denies depression or anxiety Allergies: Allergies: Allergies Coded Allergies Type Severity Reaction Last Updated Verified Penicillins Allergy Severe ANAPHYLAXIS 05/24/21 No ibuprofen Allergy Intermediate Hives 03/17/19 Yes zolpidem Allergy Intermediate 03/17/19 Yes Physical Exam: PE: Constitutional: Well developed, well nourished, no acute distress, non-toxic appearance. [] HENT: Normocephalic, atraumatic, bilateral external ears normal, oropharynx mildly erythematous without tonsillar exudates, nose normal. [] Eyes: PERRLA, EOMI, conjunctiva normal, no discharge. [] Neck: Normal range of motion, no tenderness, supple, no stridor. Enlarged bilateral anterior cervical lymph nodes [] Cardiovascular: Heart rate regular rhythm, no murmur [] Lungs & Thorax: Bilateral breath sounds clear to auscultation [] Abdomen: Bowel sounds normal, soft, no tenderness, no masses, no pulsatile masses. [] Skin: Warm, dry, no erythema, no rash. [] Back: No tenderness, no CVA tenderness. [] Extremities: No tenderness, no cyanosis, no clubbing, ROM intact, no edema. [] Neurologic: Alert and oriented X 3, normal motor function, normal sensory function, no focal deficits noted. [] Psychologic: Affect normal, judgement normal, mood normal. [] Current Patient Data: Vital Signs: Vital Signs Date Time Temp Pulse Resp B/P (MAP) Pulse Ox O2 Delivery O2 Flow Rate FiO2 05/24/21 09:30 97.6 70 14 123/85 (98) 100 Room Air EKG: EKG: [] Radiology/Procedures: Radiology/Procedures: [] Heart Score: C/O Chest Pain: N/A Risk Factors: Risk Factors: DM, Current or recent (<one month) smoker, HTN, HLP, family history of CAD, obesity. Risk Scores: Score 0 - 3: 2.5% MACE over next 6 weeks - Discharge Home Score 4 - 6: 20.3% MACE over next 6 weeks - Admit for Clinical Observation Score 7 - 10: 72.7% MACE over next 6 weeks - Early Invasive Strategies Course & Med Decision Making: Course & Med Decision Making Pertinent Labs and Imaging studies reviewed. (See chart for details) The patient's rapid strep is negative. This appears to be viral pharyngitis. I will treat her with a single dose of Decadron p.o. this will just need to run its course. She is stable for discharge at this time. [] Susanon Disclaimer: Brandon Disclaimer: This electronic medical record was generated, in whole or in part, using a voice recognition dictation system. Departure Departure: Impression: Primary Impression: Viral pharyngitis Disposition: HOME / SELF CARE / HOMELESS Condition: STABLE Referrals: PCP,NO (PCP) Patient Instructions: Viral Pharyngitis FRED MARCH DO May 24, 2021 10:25
[2021-05-24] MEDS ORDERED: DEXAMETHASONE SOD PHOS 10 MG/ML VIAL. ONE (10:28)
[2021-05-24] MEDS ORDERED: DEXAMETHASONE SOD PHOS 10 MG/ML VIAL. PO ONE ×2 (10:30→10:45)
[2021-05-24] MEDS ORDERED: DEXAMETHASONE 4 MG TABLET PO ONE (10:45)
== END 2021-05-24 10:34 | disposition home or self-care (01) ==
LOC: ER 09:30
DX: J02.8 Acute pharyngitis due to other specified organisms (principal); F41.9 Anxiety disorder, unspecified; F17.210 Nicotine dependence, cigarettes, uncomplicated; Z88.0 Allergy status to penicillin; Z88.6 Allergy status to analgesic agent; Z88.8 Allergy status to other drugs, medicaments and biological substances
CPT/HCPCS: 87070; 87880; 99283; J1100

== ENCOUNTER 2021-07-24 14:14 | Emergency (ER) | payer MEDICARE, OTHER ==
[~2021-07-24] VITALS: Ht 165.1 cm; Wt 72.1 kg
--- NOTE | 2021-07-24 14:26 | EKG ---
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
--- NOTE | 2021-07-24 14:33 | PHYS DOC ---
Past History Past Medical History: Anxiety, Other Additional Past Medical Histor: PTSD, Borderline personality disorder Past Surgical History: Other Smoking: Cigarettes Alcohol Use: Rarely Drug Use: None Adult General Chief Complaint Chief Complaint: CHEST PAIN HPI HPI Patient is a 31 year old female who presents with chest wall pain. She had onset of symptoms about 20 minutes prior to presentation. She was at rest. She describes an "clicking" on the left chest wall when she takes a deep breath. Has had similar symptoms in the past for which she is currently being evaluated by cardiology. She had a negative stress test within the last 4 weeks. She is adopted and is uncertain about family history. Pain is worse when she takes a deep breath and with certain movements. She has not been ill lately. No cough, fever, chills. No nausea or vomiting. No shortness of breath. Review of Systems Review of Systems Constitutional: Denies fever or chills Eyes: Denies change in visual acuity HENT: Denies nasal congestion Respiratory: Denies cough or shortness of breath GI: Denies abdominal pain, nausea, vomiting : Denies dysuria Musculoskeletal: Denies back pain Integument: Denies rash or skin lesions Neurologic: Denies headache All other systems were reviewed and found to be within normal limits, except as documented in this note. Allergies Allergies Allergies Coded Allergies Type Severity Reaction Last Updated Verified Penicillins Allergy Severe ANAPHYLAXIS 05/24/21 No ibuprofen Allergy Intermediate Hives 03/17/19 Yes zolpidem Allergy Intermediate 03/17/19 Yes Physical Exam Physical Exam Constitutional: Well developed, well nourished, no acute distress, non-toxic appearance. HENT: Normocephalic, atraumatic, bilateral external ears normal Eyes: PERRLA, EOMI, conjunctiva normal Neck: Normal range of motion, no tenderness Cardiovascular:Heart rate regular rhythm Lungs & Thorax: Bilateral breath sounds clear to auscultation Abdomen: Bowel sounds normal, soft, no tenderness Skin: Warm, dry, no erythema, no rash. Extremities: No tenderness, no cyanosis, no clubbing, ROM intact, no edema Neurologic: Alert and oriented X 3 Psychologic: Affect normal EKG EKG Normal sinus rhythm. No signs of ischemia. Interpreted by ER physician. Radiology/Procedures Radiology/Procedures [] Heart Score C/O Chest Pain: Yes HEART Score for Chest Pain: HEART Score for Chest Pain Response (Comments) Value History Slighlty/Non-Suspicious 0 ECG Normal 0 Age < 45 0 Risk Factors No Risk Factors 0 Troponin < Normal Limit 0 Total 0 Risk Factors: Risk Factors: DM, Current or recent (<one month) smoker, HTN, HLP, family history of CAD, obesity. Risk Scores: Risk Factors: DM, Current or recent (<one month) smoker, HTN, HLP, family history of CAD, obesity. Course & Med Decision Making Course & Med Decision Making Pertinent Labs and Imaging studies reviewed. (See chart for details) ED Summary: Patient is seen and examined in the ER, on arrival to her room. She complains of chest pain that is musculoskeletal. She just underwent stress testing less than 4 weeks earlier which was negative. She has pending cardiology follow-up as well. Her pain is worse when she takes a deep breath and sometimes worse with movements and palpation on examination. She describes a clicking in the chest. D-dimer is collected and is negative. EKG is nonacute. Chest x-ray is normal. She is given reassurance that likely no acute cause for her pain is present. She is stable for discharge home. Given some [place] to use for pain as needed as she is allergic to all NSAID medications. She will keep her already scheduled follow-up appointments. Dragon Disclaimer Dragon Disclaimer This electronic medical record was generated, in whole or in part, using a voice recognition dictation system. Departure Departure: Impression: Primary Impression: Other chest pain Disposition: HOME / SELF CARE / HOMELESS Condition: GOOD Referrals: RADHA REGALADO MD (PCP) Patient Instructions: Chest Wall Pain, [id number] JAYNA FLORES DO Jul 24, 2021 14:33
[2021-07-24 15:01] LABS: BASO % 1 % (0-3); EOS # 0.1 x10^3/uL (0.0-0.7); EOS % 1 % (0-3); HEMATOCRIT 41.1 % (36.0-47.0); HEMOGLOBIN 13.9 g/dL (12.0-15.5); LYMPH # 1.9 x10^3/uL (1.0-4.8); LYMPH % 32 % (24-48); MEAN CORPUSCULAR HEMOGLOBIN 34 pg (25-35); MEAN CORPUSCULAR HGB CONC 34 g/dL (31-37); MEAN CORPUSCULAR VOLUME 99 fL (79-100); MONO # 0.4 x10^3/uL (0.0-1.1); MONO % 7 % (0-9); NEUT # 3.7 x10^3uL (1.8-7.7); NEUT % 60 % (31-73); PLATELET COUNT 214 x10^3/uL (140-400); RED BLOOD COUNT 4.15 x10^6/uL (3.50-5.40); RED CELL DISTRIBUTION WIDTH 12.2 % (11.5-14.5); WHITE BLOOD COUNT 6.1 x10^3/uL (4.0-11.0)
[2021-07-24 15:09] LABS: CALCIUM 8.5 mg/dL (8.5-10.1); CREATININE 0.7 mg/dL (0.6-1.0); GFR 97.6; POTASSIUM 3.6 mmol/L (3.5-5.1)
[2021-07-24] MEDS ORDERED: MORPHINE SULFATE 4 MG/ML DISP.SYRIN. IV ONE (15:45)
--- NOTE | 2021-07-24 15:55 | RAD ---
XR CHEST 1V CLINICAL INDICATIONS: Reason: chest pain / Spl. Instructions: / History: COMPARISON: March 11, 2013. Findings: No acute lung infiltrate or pleural effusion or pulmonary edema or lung mass or pneumothora x is seen. The heart size, pulmonary vasculature, mediastinum and both kelsea are unremarkable. IMPRESSION: No acute radiographic abnormality is seen. Electronically signed by: Kirill Hough MD (07/24/2021 3:53 PM) [id number]
[2021-07-24 15:56] VITALS: BP 127/90
[2021-07-24] MEDS ORDERED: HYDR-2155 PO (16:32)
== END 2021-07-24 16:47 | disposition home or self-care (01) ==
LOC: ER 14:14
DX: R07.89 Other chest pain (principal); F41.9 Anxiety disorder, unspecified; F17.210 Nicotine dependence, cigarettes, uncomplicated; Z88.0 Allergy status to penicillin; Z88.8 Allergy status to other drugs, medicaments and biological substances
CPT/HCPCS: 36415; 71045; 80048; 85025; 85379; 93005; 96374; 99285; J2270

== ENCOUNTER → 2021-07-26 | Outpatient (CLI) | payer MEDICARE, OTHER ==
[2021-07-24 15:56] VITALS: BP 127/90
[~2021-07-26] MED LIST changes: +HYDR-2155 PO; +IOHEXOL 350 MG/ML 100 ML VIAL. IV ONE
--- NOTE | 2021-07-26 08:44 | RAD ---
Examination: CT angiography chest with IV contrast HISTORY: History of sharp stabbing chest pain COMPARISON: None. TECHNIQUE: Axial CT angiographic images of chest were performed with IV contrast. Coronal and sagitta l reformats are performed. Exposure: One or more of the following individualized dose reduction techniques were utilized for thi s examination: 1. Automated exposure control 2. Adjustment of the mA and/or kV according to patient size 3. Use of iterative reconstruction technique FINDINGS: The central airways are patent. The caliber of the aorta grossly appears unremarkable. There is no ev idence of filling defect identified in the main pulmonary arterial trunk and right and left pulmonary arteries and visualized lobar, segmental branches of pulmonary arteries. Minimal bibasilar lung atel ectasis. There is a 7.5 mm hypodensity identified in the right lobe of the liver, nonspecific. The sp don, adrenals grossly appears unremarkable. No evidence of lytic bony destructive lesion. IMPRESSION: 1. No evidence of pulmonary embolism. 2. Minimal bibasilar lung atelectasis. 3.Tiny subcentimeter hypodensity or cyst right lobe of the liver. Electronically signed by: Ac Olivas MD (07/26/2021 8:41 AM) [id number]
== END ==
LOC: CT 07:53
PROVIDERS: ATTEND Family Medicine
DX: J98.11 Atelectasis (principal)
CPT/HCPCS: 71275; Q9967

== ENCOUNTER 2021-10-05 16:46 | Emergency (ER) | payer MEDICARE, OTHER ==
[~2021-10-05] VITALS: Ht 165.1 cm; Wt 72.1 kg
[~2021-10-05 16:46] MED LIST changes: -IOHEXOL 350 MG/ML 100 ML VIAL. IV ONE
[2021-10-05 17:06] VITALS: BP 119/76
--- NOTE | 2021-10-05 18:32 | PHYS DOC ---
Past History Past Medical History: Anxiety, Other Additional Past Medical Histor: PTSD, Borderline personality disorder Past Surgical History: , Other Smoking: Cigarettes Alcohol Use: Rarely Drug Use: None General Adult EDM: Chief Complaint: DIZZY/LIGHT HEADED HPI: HPI: Patient is a 31-year-old female who presents with dizziness. Patient states that she has a history of anemia. Patient reports that she has felt dizzy since she got off her period 2 days ago. Patient is denying pain. Patient states she is never needed a blood transfusion. Patient has history of PTSD, borderline personality disorder, anxiety and depression. Review of Systems: Review of Systems: ROS At least 10 ROS systems have been reviewed and are negative except as documented in the HPI. General: Negative except as outlined in HPI above. Skin: Negative except as outlined in HPI above. HEENT: Negative except as outlined in HPI above. Neck: Negative except as outlined in HPI above. Respiratory: Negative except as outlined in HPI above.. Cardiovascular: Negative except as outlined in HPI above. Abdomen: Negative except as outlined in HPI above. : Negative except as outlined in HPI above. Back/MSK: Negative except as outlined in HPI above. Neuro: Negative except as outlined in HPI above. Psych: Negative except as outlined in HPI above. Allergies: Allergies: Allergies Coded Allergies Type Severity Reaction Last Updated Verified Penicillins Allergy Severe ANAPHYLAXIS 05/24/21 No ibuprofen Allergy Intermediate Hives 03/17/19 Yes zolpidem Allergy Intermediate 03/17/19 Yes Physical Exam: PE: Constitutional: Well developed, well nourished, no acute distress, non-toxic appearance. [] HENT: bilateral external ears normal, oropharynx moist, no oral exudates, nose normal. [] Eyes: PERRLA, EOMI, conjunctiva normal, no discharge. [] Neck: Normal range of motion, no tenderness, supple, Cardiovascular: Sinus tachycardia, no murmur Lungs & Thorax: Bilateral breath sounds clear to auscultation [] Abdomen: Bowel sounds normal, soft, no tenderness, no masses, no pulsatile masses. [] Skin: Warm, dry, no erythema, no rash. [] Back: No tenderness, no CVA tenderness. [] Extremities: No tenderness, no cyanosis, no clubbing, ROM intact, no edema. [] Neurologic: Alert and oriented X 3, normal motor function, normal sensory function, no focal deficits noted. [] Psychologic: Flat affect, anxious mood Current Patient Data: Vital Signs: Vital Signs Date Time Temp Pulse Resp B/P (MAP) Pulse Ox O2 Delivery O2 Flow Rate FiO2 10/05/21 17:06 98.0 62 18 119/76 (90) 100 Room Air EKG: EKG: [] Radiology/Procedures: Radiology/Procedures: [] Heart Score: C/O Chest Pain: No Risk Factors: Risk Factors: DM, Current or recent (<one month) smoker, HTN, HLP, family history of CAD, obesity. Risk Scores: Score 0 - 3: 2.5% MACE over next 6 weeks - Discharge Home Score 4 - 6: 20.3% MACE over next 6 weeks - Admit for Clinical Observation Score 7 - 10: 72.7% MACE over next 6 weeks - Early Invasive Strategies Course & Med Decision Making: Course & Med Decision Making Pertinent Labs and Imaging studies reviewed. (See chart for details) []-year-old female presents with dizziness. Patient states that she has a history of anemia and is concerned that she lost too much blood during her period ended 2 days ago. Mucous membranes moist. Vital signs are stable. Patient denied pain or issues with ambulation. Patient is alert and oriented and does not appear to be in any distress. Work-up in ER consist of labs, urinalysis, EKG. Patient given NS bolus. While waiting for results to return, patient states that she is going to leave AMA because she wants to go home and she feels fine. Nurse provided AMA paperwork for patient which patient signed and left the ER. Brandon Disclaimer: Brandon Disclaimer: This electronic medical record was generated, in whole or in part, using a voice recognition dictation system. Departure Departure: Disposition: LEFT AGAINST MEDICAL ADVICE Referrals: RADHA REGALADO MD (PCP) JONAS LOUIS APRN Oct 05, 2021 18:32
== END 2021-10-05 18:50 | disposition left against medical advice (07) ==
LOC: ER 16:46
DX: R42 Dizziness and giddiness (principal); F41.9 Anxiety disorder, unspecified; F17.210 Nicotine dependence, cigarettes, uncomplicated; Z88.0 Allergy status to penicillin; Z88.8 Allergy status to other drugs, medicaments and biological substances; Z88.6 Allergy status to analgesic agent
CPT/HCPCS: 99281